=== PATIENT | female | born 1980 | race Caucasian/White ===

== ENCOUNTER → 2017-08-26 | Outpatient (CLI) | payer OTHER | LOC: FIMAGING 10:27 | PROVIDERS: ATTEND Midwife | DX: O35.8XX0 Maternal care for other (suspected) fetal abnormality and damage, not applicable or unspecified (principal); O36.5120 Maternal care for known or suspected placental insufficiency, second trimester, not applicable or unspecified; O34.12 Maternal care for benign tumor of corpus uteri, second trimester; O09.512 Supervision of elderly primigravida, second trimester; Z3A.21 21 weeks gestation of pregnancy ==

== ENCOUNTER → 2017-09-21 | Outpatient (CLI) | payer OTHER | LOC: FIMAGING 14:07 | PROVIDERS: ATTEND Midwife | DX: O09.512 Supervision of elderly primigravida, second trimester (principal); O34.12 Maternal care for benign tumor of corpus uteri, second trimester; Z3A.24 24 weeks gestation of pregnancy ==